=== PATIENT | female | born 1965 | race Caucasian/White ===

== ENCOUNTER → 2016-07-20 | Day surgery (SDC) | payer OTHER ==
[~2016-07-20] VITALS: Ht 165.1 cm; Wt 89.8 kg
[2016-07-20] VITALS (9 sets, daily range): BP systolic 106–116; BP diastolic 66–82
[~2016-07-20] MED LIST: ATORVASTATIN CA40 MG ORAL; BACLOFEN10 MG ORAL; BUPROPION XL300 MG ORAL; BUSPAR10 MG ORAL; GABAPENTIN100 MG ORAL; LEVEMIR FL100 UNIT/1 SUBQ; LISINOPRIL5 MG ORAL; LR 1000ml ONE; Lidocaine 1% MPF 10mg/ml 5ml ONE; METFORMIN HCL1000 M1 ORAL; NORCO 10-325 T1 EACH ORAL; PANTOPRAZOLE SO40 MG ORAL; Propofol 10mg/ml 20ml IV ONE; XANAX0.5 MG ORAL
--- NOTE | 2016-07-20 07:28 | Immediate Post-Op Evaluation ---
Immediate Post-Op Evalulation Immediate Post-Op Evalulation Procedure: EGD/colonoscopy Date of Evaluation: Jul 20, 2016 Time of Evaluation: 08:30 IV Fluids: 400 ml Blood Products: 0 Estimated Blood Loss: 0 Urinary Output: nm Blood Pressure Systolic: 112 Blood Pressure Diastolic: 78 Pulse Rate: 78 Respiratory Rate: 16 O2 Sat by Pulse Oximetry: 99 Temperature (Fahrenheit): 97.6 Pain Score (1-10): 0 Nausea: No Vomiting: No Complications none Patient Status: reacts, patent, none Hydration Status: adequate Drug: none HAILEY BECERRA M.D. Jul 20, 2016 07:28
--- NOTE | 2016-07-20 07:30 | 48 Hour Post Anesthesia Eval ---
Post Anesthesia Evaluation Procedure: EGD/colonoscopy Date of Evaluation: Jul 20, 2016 Time of Evaluation: 09:03 Blood Pressure Systolic: 106 0: 68 Pulse Rate: 72 Respiratory Rate: 16 Temperature (Fahrenheit): 97.9 O2 Sat by Pulse Oximetry: 99 Airway: patent Nausea: No Vomiting: No Hydration Status: adequate Cardiopulmonary Status: stable Mental Status/LOC: other - sslightly dowsy Follow-up care needed: N/A HAILEY BECERRA M.D. Jul 20, 2016 07:30
--- NOTE | 2016-07-20 07:32 | Anethesia Preoperative Eval ---
Anesthesia Pre-op PMH/ROS General Date of Evaluation: Jul 20, 2016 Time of Evaluation: 07:40 Anesthesiologist: Basilio ASA Score: ASA 3 Mallampati Score Class I : Soft palate, uvula, fauces, pillars visible Class II: Soft palate, uvula, fauces visible Class III: Soft palate, base of uvula visible Class IV: Only hard plate visible Mallampati Classification: Class II Surgeon: Tim Diagnosis: Abdominal pain Surgical Procedure: EGD/colonoscopy Anesthesia History: other - severe reaction to morphine Allergies: Coded Allergies: MORPHINE (Verified Adverse Reaction, Severe, HIVE, ITCHING, SWELLING OF FACE, 07/20/16) Medications: see eMAR Past Medical History Cardiovascular: Reports: HTN Gastrointestinal/Genitourinary: Reports: GERD Neurologic/Psychiatric: Reports: depression/anxiety Endocrine: Reports: DM Other: obesity Anesthesia Pre-op Phys. Exam Physician Exam Constitutional: NAD Neurologic: CN 2-12 intact Cardiovascular: RRR Respiratory: CTA Gastrointestinal: other - deferred Airway Exam Mallampati Score: Class II MO: full Neck: from ROM: full Anesthesia Pre-op A/P Risk Assessment & Plan Plan: mac Pre-Antibiotics Drug: none HAILEY BECERRA M.D. Jul 20, 2016 07:32
--- NOTE | 2016-07-20 07:56 | Short Stay Surgery H&P ---
History of Present Illness History of Present Illness Chief Complaint Abdominal pains. TOMMY Elizondo is a 51 year old female who was admitted on for Abdominal Pain Patient History Allergies: Coded Allergies: MORPHINE (Verified Adverse Reaction, Severe, HIVE, ITCHING, SWELLING OF FACE, 07/20/16) PAST MEDICAL HISTORY: (1) Diabetes (2) Rheumatoid arteritis (3) Hyperlipidemia (4) Asthma (5) Scleroderma Past Surgeries: Social History: Medication History Scheduled Alprazolam* (Xanax*), 0.5 MG ORAL BID, (Reported) Atorvastatin Calcium* (Atorvastatin Calcium*), 40 MG ORAL BEDTIME, (Reported) Baclofen* (Baclofen*), 10 MG ORAL THREE TIMES A DAY, (Reported) Bupropion Hcl* (Wellbutrin*), 300 MG ORAL DAILY, (Reported) Buspirone Hcl* (Buspar*), 10 MG ORAL BID, (Reported) Gabapentin* (Gabapentin*), 200 MG ORAL BID, (Reported) Insulin Detemir (Levemir Flexpen), 14 SUBQ IN AM, (Reported) Insulin Detemir (Levemir Flexpen), 40 SUBQ NIGHT, (Reported) Lisinopril (Lisinopril*), 5 MG ORAL DAILY, (Reported) Metformin Hcl* (Metformin Hcl*), 1,000 MG ORAL BID, (Reported) Pantoprazole* (Pantoprazole*), 40 MG ORAL DAILY, (Reported) Scheduled PRN Hydrocodone Bit/Acetaminophen 10-325* (Whiting 10-325*), 1 TAB ORAL BID PRN for For Pain, (Reported) Review of Systems Cardiovascular: Reports: no symptoms Respiratory: Reports: no symptoms Skeletal: Reports: no symptoms, osteroarthritis Gastrointestinal: Reports: gastro esophageal reflux disease Genitourinary: Reports: no symptoms Neurologic: Reports: no symptoms Endocrine: Reports: diabetes - type 2 Hematologic: Reports: no symptoms Physical Exam Vital Signs Last Vital Signs Date Time Temp Pulse Resp B/P Pulse Ox O2 Delivery O2 Flow Rate FiO2 07/20/16 07:48 97.6 74 18 109/75 100 Room Air Skin: normal HENT: normal Heart: normal Lungs: normal Abdomen: abnormal Extremities: normal Genitourinary: normal Plan Plan of Care Uppr and lower GI endoscopy Preop Interventions None. Summary of Findings See the reports Final Diagnosis: Attestation Are the patient's medical conditions optimized for surgery? Attestation Response: yes AKIKO ROLLINS Jul 20, 2016 07:56
--- NOTE | 2016-07-20 07:57 | Pre-Procedure Note/Attestation ---
Pre-Procedure Note/Attestation Complete Prior to Procedure Planned Procedure: left Procedure Narrative: The endoscopic exam of the upper and lower GI tract. Indications for Procedure Pre-Operative Diagnosis: R/O Peptic Ulcer and gastritis/colitis. Attestation I attest that I discussed the nature of the procedure; its benefits; risks and complications; and alternatives (and the risks and benefits of such alternatives ), prior to the procedure, with the patient (or the patient's legal front desk representative). I attest that, if there was a reasonable possibility of needing a blood transfusion, the patient (or the patient's legal front desk representative) was given the [place] Department [employer] Services standardized written summary, pursuant to the [place] Blood Safety Act ([place] Health and Safety Code # 1645, as amended). I attest that I re-evaluated the patient just prior to the surgery and that there has been no change in the patient's H&P, except as documented below: AYO,SAID Jul 20, 2016 07:57
--- NOTE | 2016-07-20 08:21 | Endoscopy Procedure Note ---
Endoscopy Procedure Note Indication for Procedure: Abdominal pains, GERDs. Procedures Performed: EGD - Completely normal upper GI endoscopy. Biopsy was dome per random from gastric body., colonoscopy - Compleletly normal total colonoscopy with incidental finding of a small diverticuli in the rectosigmoid area. Poor colon prep. No colitis/polyps found. Specimen: yes Pt Tolerated Procedure Well: Yes Estimated Blood Loss: none Anesthesiologist: Dr. Richmond. Anesthesia: moderate sedation Medication Given: see anesthesia record Implant(s) used?: No 50 yrs or older w/o bx or poly: Yes 10yrs. F/U not recommended: Yes 10 yrs. F/U needed: Yes <3yrs. since last colonoscopy: No Med reason:<3 yrs.: System Reason:<3 yrs.: Last colonoscopy >= to 3yrs: Yes AKIKO ROLLINS Jul 20, 2016 08:21
--- NOTE | 2016-07-20 08:22 | Discharge Instructions ---
Discharge Instructions Discharge Instructions Follow up with: Visit the docotor in office after 2 weeks. For Congestive Heart Failure Reminder Report to your physician any weight gain of 5 pounds or more in one week. AYO,AKIKO Jul 20, 2016 08:22
--- NOTE | 2016-07-20 09:47 | Operative Note - Dictated ---
DATE OF OPERATION: 07/20/2016 PROCEDURE: Esophagogastroduodenoscopy with biopsy. REFERRING PHYSICIAN: Ilya Rojas M.D. PREOPERATIVE DIAGNOSES: 1. Abdominal pain. 2. History of gastroesophageal reflux. POSTOPERATIVE DIAGNOSES: Completely normal upper gastrointestinal endoscopy. Biopsy was taken per random from the gastric body. MEDICATION: Per Dr. Richmond, anesthesiologist. INSTRUMENT: GIF Olympus upper gastrointestinal video endoscope. DESCRIPTION OF PROCEDURE: The patient after arriving in the endoscopy unit, was told about risks and benefits of the procedure, which she accepted and signed the informed consent. She was then put on the left lateral decubitus position. After adequate IV sedation, the scope was gently passed through the cricopharyngeal area, was lodged in the upper esophagus, and gradually advanced towards gastroesophageal junction. The entire length of the esophagus looked normal. No evidence of varices, inflammatory process, ulceration, etc. was found. GE junction also looked normal. At this time, the scope was passed into the stomach. Gastric cavity was distended and in an oracle fusion middleware developer fashion gradually in the areas of the fundus of the body and the antrum were examined, which revealed no evidence of inflammatory process, ulcers, polyps, tumors, etc. One random biopsy from gastric body obtained. Subsequently, scope was passed through normal looking pylorus. First and second portion of duodenum were found to be also completely normal. At this time, the scope was pulled back into the stomach. A retroflexion maneuver was applied. The area of the gastroesophageal junction and the fundus of the stomach were examined in a closer fashion and that revealed no other pathology. Finally, the scope was pulled out. The procedure was terminated. The patient tolerated the procedure well. Said Franky Dumont DR: CHELSY JOB#: [id number] CC:
--- NOTE | 2016-07-20 10:18 | Operative Note - Dictated ---
DATE OF OPERATION: 07/20/2016 REFERRING PHYSICIAN: Ilya Rojas M.D. PROCEDURE: Total colonoscopy. PREOPERATIVE DIAGNOSES: 1. Abdominal pain. 2. Diarrhea. POSTOPERATIVE DIAGNOSES: 1. Incidental finding a very small diverticula in the rectosigmoid area of no great significance. Otherwise, complete normal total colonoscopy. 2. Poor colonic preparation. MEDICATIONS USED: Per Dr. Tenorio, anesthesiologist. INSTRUMENT: GIF Olympus videocolonoscope. DESCRIPTION OF PROCEDURE: The patient after arriving in the endoscopy unit, was told about risks and benefits of the procedure, which she accepted and signed the informed consent. She was then put on the left lateral decubitus position. After adequate IV sedation, scope gently passed through the anal area, and careful examination of the section with introducing a retroflexion maneuver did not reveal any pathology in the whole part of the rectum. There was no polyps, tumors, inflammatory process, major hemorrhoids etc. At this time, the scope was gradually passed through the left colon. The rectosigmoid area, which significantly revealed only one single very small diverticular lesion of no great significance. There was no any evidence of inflammatory process, polyps, tumors, strictures etc. The scope was gradually passed through the colon, which was filled with green liquidy stool signifying of poor preparation, however, there was no evidence of gross pathology such as tumors, polyps, etc though a small hyperplastic diminutive polypoid lesion could not be ruled out due to lack of adequate colonic preparations as I mentioned. Finally, the scope was gradually advanced toward the splenic flexure, transverse colon, hepatic flexure, right colon all the way to the base of the cecum. All these areas remained to be normal. Finally within seven minutes, the scope was gradually pulled out and re-evaluation of the colon did not reveal any pathology as I mentioned. The patient tolerated the procedure well and left the endoscopy room in good condition. Said Franky Dumont DR: Kerry JOB#: [id number] CC:
--- NOTE | 2016-07-20 11:28 | Pre-op HX & Phy Repo 2 SIG ---
DATE OF ADMISSION: 07/20/2016 REFERRING PHYSICIAN: Ilya Rojas M.D. HISTORY OF PRESENT ILLNESS: The patient is a 51-year-old female, who is being seen prior to undergoing the procedure of upper and lower GI endoscopy for which she has been scheduled to receive for evaluation of her gastrointestinal complaints and conditions that she has suffered subsequent to work injury. The applicant basically is complaining of pain generalized allover the abdomen, particularly in the epigastric area associated with experiencing heartburn. The pain is also mostly located over the left lower quadrant as well. The applicant does have history of being injured at job site as she was passing through the gate and she was injured. She had the injury over the neck, lower back, in the knee, and lower extremities. As such, the patient had right hip strain and right knee contusion and collateral ligament tear. At first, the patient however denies having had any major nausea or vomiting, but occasional diarrhea. PAST MEDICAL HISTORY: Hyperlipidemia, diabetes, rheumatoid arthritis, asthma. PAST SURGICAL HISTORY: Surgeries none. ALLERGIES: Morphine. HABITS: The applicant does not smoke or drinks and does not use any illicit drugs. List of present medications are bupropion, hydrocodone, baclofen, metformin, Protonix,Levemir. REVIEW OF SYSTEMS: Basically history of present illness. PHYSICAL EXAMINATION: GENERAL: Reveals an alert and well-oriented female, does not seem to be in acute distress. She is obese but well developed and nourished and answers to questions properly. VITAL SIGNS: Stable. HEENT: Normocephalic. Pupils equal in size and reactive to light and accommodation. No visible jaundice. Oral cavity, tongue midline and well hydrated. NECK: Supple. No JVD or thyromegaly. CHEST: Clear to auscultation and percussion. No rales or rhonchi. HEART: S1 and S2 normal. Regular rhythm. No gallops or murmur. ABDOMEN: Soft, but obese. There are areas of tenderness over the lower quadrant area, but no masses noted. No percussion tenderness. RECTAL: Examination was deferred. EXTREMITIES: Unremarkable. IMPRESSION: Preliminary impression is abdominal pain of uncertain etiology, rule out generalized gastrospasm consistent with: 1. Irritable bowel syndrome, irritable bowel syndrome of posttraumatic stress type. 2. Possible gastroesophageal reflux, gastroesophageal reflux disease, rule out gastritis, acid-induced gastropathy, duodenal ulcer, peptic ulcer, etc. 3. History of diarrhea, possibly secondary to irritable bowel syndrome, rule out colitis. 4. Diabetes mellitus. 5. Asthma. 6. Remote history of diverticulosis. RECOMMENDATION: The applicant seems to be stable at this time to undergo the procedure of upper and lower GI endoscopy for which she has been scheduled. She understands the risks and benefits and signed the consent. Said Franky Dumont DR: Katia JOB#: [id number] CC: CLARISA
== END | disposition home or self-care (01) ==
LOC: GAS 06:25
DX: K29.50 Unspecified chronic gastritis without bleeding (principal); K21.9 Gastro-esophageal reflux disease without esophagitis; R19.7 Diarrhea, unspecified; K57.30 Diverticulosis of large intestine without perforation or abscess without bleeding; E11.9 Type 2 diabetes mellitus without complications; Z79.4 Long term (current) use of insulin; M06.9 Rheumatoid arthritis, unspecified; E78.5 Hyperlipidemia, unspecified; J45.909 Unspecified asthma, uncomplicated; M34.9 Systemic sclerosis, unspecified; I10 Essential (primary) hypertension; F32.9 Major depressive disorder, single episode, unspecified; F41.9 Anxiety disorder, unspecified; E66.9 Obesity, unspecified; Z88.5 Allergy status to narcotic agent
CPT/HCPCS: 43239; 45378; 82962; J2704; J7120; 94003; 94150